=== PATIENT | female | born 1995 | race African-American/Black ===

== ENCOUNTER 2024-11-25 15:47 | Emergency (ER) | payer OTHER ==
[~2024-11-25] VITALS: Ht 175.3 cm; Wt 64.0 kg
[2024-11-25 15:50] VITALS: O2SAT 100
[2024-11-25 17:26] LABS: HEMATOCRIT 40.8 % (36.0-48.0); HEMOGLOBIN 13.6 g/dL (12.0-16.0); MEAN CORPUSCULAR HEMOGLOBIN 32.1 pg (28.0-32.0); MEAN CORPUSCULAR HGB CONC 33.3 g/dL (31.0-37.0); MEAN CORPUSCULAR VOLUME 96.6 fL (81.0-99.0); PLATELET 348 x1000/uL (130-400); RED BLOOD CELL COUNT 4.22 mill/uL (4.2-5.4); RED CELL DISTRIBUTION WIDTH 13.7 % (11.6-14.6); WHITE BLOOD COUNT 5.8 x1000/uL (4.5-11.0)
[2024-11-25 17:51] LABS: CHLORIDE 104 mEq/L (98-107); POTASSIUM 4.2 mEq/L (3.5-5.1); SODIUM 141 mEq/L (136-145)
[2024-11-25 17:52] LABS: CALCIUM 9.8 mg/dL (8.7-10.4); CARBON DIOXIDE 28 mEq/L (21-32)
[2024-11-25 17:56] LABS: HCG SCREEN NEGATIVE
[2024-11-25 17:57] LABS: CREATININE 0.8 mg/dL (0.6-1.0); GLUCOSE 93 mg/dL (70-105); UREA NITROGEN BLOOD < 5 mg/dL (9-23)
[2024-11-25 18:08] LABS: TROPONIN I HIGH SENSITIVITY < 4 ng/L (3.0-34)
[2024-11-25] MEDS: KETOROLAC 30MG/ML VIAL IM ONE (18:20)
[2024-11-25] MEDS: ACETAMINOPHEN 325MG TABLET PO ONE (18:20)
[2024-11-25] MEDS ORDERED: KETO10TA2 MT (19:51)
[2024-11-25 20:10] VITALS: BP 117/68; PULSE 78; RESP 20; TEMP 36.8; O2SAT 100
== END 2024-11-25 20:10 | disposition home or self-care (01) ==
LOC: ER 15:47
DX: S01.01XA Laceration without foreign body of scalp, initial encounter (principal); R51.9 Headache, unspecified; I49.9 Cardiac arrhythmia, unspecified; Z88.6 Allergy status to analgesic agent; W22.8XXA Striking against or struck by other objects, initial encounter; Y93.89 Activity, other specified; Y92.89 Other specified places as the place of occurrence of the external cause; Y99.8 Other external cause status
CPT/HCPCS: 80048; 84703; 85027; 84484; 36415; 70450; 93005; 96372; 99285; J1885; Z7610 ×2